=== PATIENT | male | born 1975 | race Hispanic/Latino ===

== ENCOUNTER 2018-09-04 17:04 | Emergency (ER) | payer SELFPAY ==
[~2018-09-04] VITALS: Ht 167.6 cm; Wt 79.4 kg
[2018-09-04] MEDS ORDERED: KEFLEX500 MG PO (17:19)
[2018-09-04] MEDS ORDERED: LIDOCAINE HCL 1% 2 ML AMP INJ ONE (17:30)
[2018-09-04] MEDS ORDERED: BACITRACIN ZINC 15 GM OINT TOP SCH (17:45)
[2018-09-04 18:38] VITALS: BP 119/72
== END 2018-09-04 18:30 | disposition home or self-care (01) ==
LOC: ER 17:04
DX: S61.411A Laceration without foreign body of right hand, initial encounter (principal); W26.8XXA Contact with other sharp object(s), not elsewhere classified, initial encounter; Y93.E6 Activity, residential relocation; Y92.000 Kitchen of unspecified non-institutional (private) residence as the place of occurrence of the external cause; I10 Essential (primary) hypertension
CPT/HCPCS: 99283

== ENCOUNTER 2022-05-23 20:12 | Emergency (ER) | payer SELFPAY ==
[~2022-05-23] VITALS: Ht 167.6 cm; Wt 79.4 kg
[~2022-05-23 20:12] MED LIST: KEFLEX500 MG PO
[2022-05-23] MEDS ORDERED: ACETAMINOPHEN 1000 MG/100 ML IV STA (20:40)
[2022-05-23] MEDS ORDERED: DEXAMETHASONE SOD PHOS 10 MG/1 ML VIAL IV ONE (20:45)
[2022-05-23] MEDS ORDERED: SODIUM CHLORIDE 0.9% 1000ML 1,000 ML IV ONE (20:45)
[2022-05-23 20:53] LABS: BASOPHILS # (AUTO) 0.1 (0.0-0.1); BASOPHILS % 0.3 % (0.0-1.0); EOSINOPHILS % 0.1 % (0.0-6.0); HEMOGLOBIN 13.7 g/dL (14.0-18.0); LYMPHOCYTES # (AUTO) 1.1 (1.0-3.2); LYMPHOCYTES % 4.7 % (18.0-39.1); MEAN CORPUSCULAR HEMOGLOBIN 31.1 pg (28-32); MEAN CORPUSCULAR HGB CONC 34.3 g/dL (31-35); MEAN CORPUSCULAR VOLUME 90.7 fL (81-99); MONOCYTES # (AUTO) 1.6 (0.2-0.8); MONOCYTES % 6.9 % (4.4-11.3); NEUTROPHILS # (AUTO) 20.1 (2.1-6.9); NEUTROPHILS % 87.4 % (38.7-80.0); PLATELET COUNT 237 x10e3/uL (140-360); RED BLOOD COUNT 4.41 x10e6/uL (4.3-5.7); RED CELL DISTRIBUTION WIDTH 12.7 % (11.7-14.4)
[2022-05-23] MEDS ORDERED: PIPERACILLIN/TAZOBACTAM 3.375 GM VIAL ONE (21:04)
[2022-05-23 21:14] LABS: ANION GAP 14.7 mmol/L (8-16); CALCIUM 9.1 mg/dL (8.4-10.2); CREATININE, SERUM 1.13 mg/dL (0.72-1.25); POTASSIUM 3.7 mmol/L (3.5-5.1)
[2022-05-23] MEDS ORDERED: IOPAMIDOL 370 MG/ML 100 ML INFUS..BTL INJ ONE (22:02)
[2022-05-24] MEDS ORDERED: KETOROLAC TROMETHAMINE 30 MG/ML VIAL IV STA ×2 (00:30)
[2022-05-24 00:42] VITALS: BP 112/64
[2022-05-24] MEDS ORDERED: KETOROLAC TROMETHAMINE 30 MG/ML VIAL ONE (00:47)
== END 2022-05-24 00:51 | disposition other institution (70) ==
LOC: ER 20:47
DX: R50.9 Fever, unspecified (principal); J36 Peritonsillar abscess; D72.829 Elevated white blood cell count, unspecified; J04.0 Acute laryngitis; Z20.822 Contact with and (suspected) exposure to COVID-19; F17.210 Nicotine dependence, cigarettes, uncomplicated
CPT/HCPCS: 36415; 70491; 80048; 83518; 83605; 85025; 87040; 87070; 99284; J0131; J1100; J1885; J2543; J7030; Q9967; U0002